=== PATIENT | male | born 2000 | race Two or more races ===

== ENCOUNTER 2023-06-21 09:54 | Outpatient (AMB) | payer BC, SELFPAY ==
--- NOTE | 2023-06-21 09:56 | A.OFFPC_ITS ---
Vital Signs 06/21/23 09:58 Height 5 ft 6 in Weight 168 lb 8 oz BMI 27.2 BP 116/62 Blood Pressure Location Lt brachial Position Sitting Pulse 65 Pulse Source Pulse Oximeter Pulse Oximetry (%) 98 Oxygen Delivery Method Room Air Intake Visit Reasons: New patient-requesting physical Intake Note: Patient is here as a new patient, he is concerned about bilateral knee pain after playing soccer, and strenuous exercises, he thinks he may have fungus in little toe on the right foot. Allergies No Known Allergies Allergy (Verified 06/21/23 10:01) Tobacco use date assessed: 06/21/23 Dental Screening Dental Screen Date: 06/21/23 Did you have a dental visit in the last 12 months?: Yes Did you have a dental problem in the last 6 months where you did not have access to dental care?: No Was dental information given to patient?: Patient has dentist HPI New patient-requesting physical HPI Details New patient Prior PCP:?[facility] Last office visit/CPE: > 1 yr Acute issue(s): Bilateral knee pain after playing soccer ?Toenail fungus PMHx: Knee injuries SurgHx: None FHx: Denies SocHx: Nonsmoker. EtOH none. No drugs PFSH Family History (Updated 06/21/23 @ 10:16 by Fatoumata Washburn CMA) Maternal Grandmother Glaucoma Sister Glaucoma Social History (Updated 06/21/23 @ 10:17 by Fatoumata Washburn CMA) Household Members: Family Housing: House Alcohol intake: former Patient Tobacco Use Status: Never used Tobacco e-Cigarette/Vaping Use: Never Used Use of substances other than those prescribed or required for medical reasons: No service: No Current occupational status: employed Current occupation: electrical aprentice Cognitive needs: No Hearing needs: No Vision needs: No Questionnaire PHQ-9 Over the last 2 weeks, how often have you been bothered by any of the following problems? 1. Little interest or pleasure in doing things: not at all 2. Feeling down, depressed, or hopeless: not at all 3. Trouble falling or staying asleep, or sleeping too much: not at all 4. Feeling tired or having little energy: not at all 5. Poor appetite or overeating: not at all 6. Feeling bad about yourself - or that you are a failure or have let yourself or your family down: not at all 7. Trouble concentrating on things, such as reading the newspaper or watching television: not at all 8. Moving or speaking so slowly that other people could have noticed. Or the opposite - being so fidgety or restless that you have been moving around a lot more than usual: not at all 9. Thoughts that you would be better off or of hurting yourself in some way: not at all Total score: 0 Source: Developed by Drs. Az Chand, Alicia Espinoza, Kenney Sanchez and colleagues, with an educational jaime from [employer]. Thrive Questionnaire I am a: Patient What is your living situation today?: I have a steady place to live Within the past 12 months, did the food you bought not last and you didn't have the money to get more?: Never true Within the past 12 months, did you worry whether your food would run out before you got money to buy more?: Never true Do you have trouble paying for medicines?: No Do you have trouble getting transportation to medical appointments?: No Do you have trouble paying your heating and electricity bill?: No Do you have trouble taking care of your child, family member or friend?: No Do you have trouble with day-to-day activities such as bathing, preparing meals, shopping, managing finances, etc.?: No Are you currently unemployed and looking for a job?: No Are you interested in more education?: Yes AUDIT C Alcohol Use Questionnaire (AUDIT-C) 1. How often do you have a drink containing alcohol?: Never 3. How often do you have six or more drinks on one occasion?: Never Total Score: 0 ALBERTO-7 AMB Questionnaire ALBERTO-7 Date ALBERTO - 7 assessed: 06/21/23 Feeling nervous, anxious, or on edge: 0 = Not at all Not being able to stop or control worryin = Not at all Worrying too much about different things: 0 = Not at all Trouble relaxin = Not at all Being so restless that it is hard to sit still: 0 = Not at all Becoming easily annoyed or irritable: 0 = Not at all Feeling afraid as if something awful might happen: 0 = Not at all Total ALBERTO-7 score (0-4 normal; 5-9 mild; 10-14 moderate; 15-21 severe): 0 Source: Developed by Drs. Az Chand, Alicia Espinoza, Kenney Sanchez and colleagues, with an educational jaime from [employer]. Review of Systems Const Denies chills, Denies fatigue, Denies fever(s), Denies headache(s) and Denies weakness ENT Denies dizziness and Denies headache(s) Card Denies chest pain, Denies lightheadedness, Denies dyspnea and Denies other (Palpitations) Resp Denies cough, Denies dyspnea, Denies wheezing and Denies other ( shortness of breath) Musc Details: b/L knee pain Denies numbness and Denies tingling Neuro Denies dizziness, Denies headache(s), Denies numbness, Denies tingling, Denies paresthesias and Denies weakness Psych Denies anxiety and Denies depression Endo Denies fatigue Aller/Immun Denies wheezing Physical exam (Primary Care) Vital Signs: Last Vital Signs Pulse 65 06/21/23 09:58 BP 116/62 06/21/23 09:58 Pulse Ox 98 06/21/23 09:58 Oxygen Delivery Method Room Air 06/21/23 09:58 BMI result Body Mass Index 27.2 Tobacco/Smoking Status: Tobacco use Status Tobacco use date assessed 06/21/23 06/21/23 10:03 Patient Tobacco Use Status Never used Tobacco 06/21/23 10:17 e-Cigarette/Vaping Use Never Used 06/21/23 10:17 PHQ-9: PHQ-9 Score PHQ-9: Total score 0 06/21/23 10:45 Const General: no acute distress and well developed Nutritional Appearance: well nourished Orientation/consciousness: patient oriented x3 HENMT Head: Yes normocephalic and Yes atraumatic Eyes General: appearance normal, both eyes and all related structures Pupils: Equal, round and reactive pupils present EOM: EOMs intact bilaterally Resp Effort & Inspection: normal respiratory effort Auscultation: clear to auscultation bilaterally Cardio Rate: regular rate Rhythm: regular rhythm Heart sounds: S1 normal heart sound present, S2 normal heart sound present, no gallops, no murmurs and no rubs Neuro General: patient oriented x3 and gait normal Cranial nerves: Yes Equal, round and reactive pupils present Psych Affect: normal affect Assessment and Plan Assessment & Plan (1) Bilateral knee pain: Code(s): M25.561 - Pain in right knee; M25.562 - Pain in left knee Plan: Primarily patellofemoral syndrome though he has had some ligamentous injury in the past. He can use ibuprofen, ice/heat and I will refer him for physical therapy (2) Ingrown toenail: Code(s): L60.0 - Ingrowing nail Plan: Mild ingrown nail Advised he not cut back his nail so short (3) Fungal toenail infection: Code(s): B35.1 - Tinea unguium Plan: Avoid excess moisture Change socks twice a day Can used her benefit in cream (4) Laboratory exam ordered as part of routine general medical examination: Code(s): Z00.00 - Encounter for general adult medical examination without abnormal findings Plan: Check labs Orders: Orders PT Evaluation and Treatment Today M25.561 - Pain in right knee, M25.562 - Pain in left knee Medications: New terbinafine HCl 1% (Antifungal (terbinafine)) 1 appl topical BID 30 days 30 grams 3RF ibuprofen 600 mg PO TID 30 days 90 tabs 1RF Coding Level of Care Code New Pt Level 4 (94414) Diagnoses Bilateral knee pain M25.561; M25.562 Ingrown toenail L60.0 Fungal toenail infection B35.1 Laboratory exam ordered as part of routine general medical examination Z00.00
[2023-06-21 09:58] VITALS: BP 116/62; PULSE 65; O2SAT 98; BMI 27.2
== END 2023-06-21 11:08 | disposition home or self-care (01) ==
PROVIDERS: PCP Family Medicine; Visit Provider Family Medicine
DX: M25.561 Pain in right knee (principal); M25.562 Pain in left knee; L60.0 Ingrowing nail; B35.1 Tinea unguium; Z00.00 Encounter for general adult medical examination without abnormal findings
CPT/HCPCS: 99204

== ENCOUNTER 2023-06-22 09:40 | Outpatient (REF) | payer BC, SELFPAY ==
[2023-06-22 12:30] LABS: Alanine Aminotransferase 42 U/L (0-40); Albumin Level 4.4 g/dL (3.5-5.0); Alkaline Phosphatase 77 U/L (39-117); Anion Gap 9 (12-20); Aspartate Amino Transferase 32 U/L (5-37); Blood Urea Nitrogen 14 mg/dL (9-16); Calcium 9.4 mg/dL (8.4-10.2); Carbon Dioxide 29 mmol/L (22-29); Chloride 106 mmol/L (96-108); Cholesterol 179 mg/dL (<200); Estimated Glomerular Filt Rate > 60; Glucose Fasting 89 mg/dL (60-99); HDL Cholesterol 60 mg/dL (>40); LDL Cholesterol Calculated 104 mg/dL (<100); Potassium 3.9 mmol/L (3.3-5.1); Sodium 140 mmol/L (135-145); Total Protein 7.2 g/dL (6.5-8.0); Triglycerides 79 mg/dL (<150)
[2023-06-22 12:31] LABS: TSH reflex Free T4 2.09 uIU/mL (0.32-4.0)
[2023-06-22 17:40] LABS: Appearance Urine Clear; Color Urine Yellow; Glucose Urine UA Negative (Negative); Leukocyte Esterase Urine Negative (Negative); Nitrite Urine Negative (Negative); PH 5.5 (5.0-9.0); Specific Gravity - Urine 1.015 (1.005-1.025); Urine Blood Negative (Negative); Urine Ketones Negative (Negative); Urine Protein Negative (Neg-Trace)
[2023-06-22 18:12] LABS: Creatinine Urine 92.33 mg/dL; Microalbumin Urine < 5.0 mg/L
== END 2023-06-22 09:41 | disposition home or self-care (01) ==
LOC: HO.WFDLDS 09:40
PROVIDERS: Visit Provider Family Medicine
DX: Z00.00 Encounter for general adult medical examination without abnormal findings (principal); I10 Essential (primary) hypertension
CPT/HCPCS: 36415; 80053; 80061; 81003; 82570; 84443

== ENCOUNTER 2023-08-31 08:00 | Outpatient (RCR) | payer BC, SELFPAY ==
--- NOTE | 2023-06-27 13:25 | MHC.PT.EP ---
[facility] [place] Office [place] Office [place] Office [address] Ivan Chapa [address] [phone] F: [phone] F: [phone] F: [phone] F: [phone] Physical Therapy Plan of Care Date of Evaluation: 06/27/23 Date of Surgery: NA Diagnosis: B KNEE PAIN Assessment: Pt IS 23 YO M REFERRED TO PT FROM DR BOWMAN WITH B KNEE PAIN (Pt REPORTS L>R). REPORTS SOME GENERAL INJURIES WRESTLING AND PLAYING SOCCER IN HS. NEVER HAD PT. PRESENTS WITH GOOD KNEE ROM AND STRENGTH PER MMT. SOME HS TIGHTNESS, SOME DECREASED ENDURANCE IN LE MMS, PES PLANUS/GENU VARUS AND PATELLA ALIGNMENT ISSUES. SHOULD BENEFIT FROM PT TO ADDRESS THESE ISSUES Frequency and Duration: The patient will be seen 2X/WK X 4 WKS Short Term Goals: 1. INCREASED AWARENESS KNEE CARE 2. I TAPING WITH RELIEF IF INDICATED 3. Pt TO WEAR OTC ARCH SUPPORTS IF RELIEF WITH KT FOR ARCH SUPPORT [facility] Goals: 1. I HEP WITH DC EX PLAN 2. DECREASED KNEE PAIN AT LEAST 50% WITH ADLS 3. IMPROVED LEFI (65/80 AT SOC) Treatment Plan: Modalities to reduce pain, spasms and effusion. Manual therapy to restore motion and function. Therapeutic exercise to improve strength and flexibility. Neuromuscular re-education for posture and balance. Therapeutic activities to return to functional activities of daily living. Electronically signed by: MULU CISNEROS PT Please sign and return to therapist. Thank you for your referral.
--- NOTE | 2023-10-03 15:14 | MHC.PT.DC ---
[facility] [place] Office [place] Office [place] Office [address] Ivan Chapa [address] [phone] F: [phone] F: [phone] F: [phone] F: [phone] Physical Therapy Discharge Report Diagnosis: B KNEE PAIN Date of Surgery: NA Date of Evaluation: 06/27/23 Date of Discharge: 10/03/23 Treatments to Date: 11 Cancellations to Date: No Shows to Date: Discharge Status: Achieved Goals Independent with HEP Discharge Summary: PER ASSESSMENT BY STEPHEN SAL, PT, DPT ON 08/31/23: Pt I with HEP and has met a goals for therapy. D/C pt to I HEP. Electronically signed by: MULU CISNEROS PT Please sign and return to therapist. Thank you for your referral.
== END 2023-10-03 15:14 | disposition home or self-care (01) ==
LOC: HO.PTWFD 08:00
PROVIDERS: PCP Family Medicine; Visit Provider Family Medicine
DX: M25.561 Pain in right knee (principal); M25.562 Pain in left knee
CPT/HCPCS: 97110; 97140; 97161; 97530; 97535

== ENCOUNTER 2025-07-03 09:59 | Outpatient (AMB) | payer BC, SELFPAY ==
[2025-07-03 10:02] VITALS: BP 110/68; PULSE 59; O2SAT 98; BMI 26.8
--- NOTE | 2025-07-03 10:02 | MHC.PC.OV ---
Vital Signs 07/03/25 10:02 Height 5 ft 6 in Weight 166 lb BMI 26.8 BP 110/68 Blood Pressure Location Rt brachial Position Sitting Pulse 59 Pulse Source Pulse Oximeter Pulse Oximetry (%) 98 Oxygen Delivery Method Room Air Intake Visit Reasons: PE exam Allergies No Known Allergies Allergy (Verified 07/03/25 10:04) Medication List - Last Reconciled 07/03/25 by Jay Degroot MD No Known Home Meds Tobacco use date assessed: 07/03/25 Dental Screening Dental Screen Date: 07/03/25 Did you have a dental visit in the last 12 months?: Yes Did you have a dental problem in the last 6 months where you did not have access to dental care?: No Was dental information given to patient?: Patient has dentist HPI PE exam HPI Details 25 /o male presents for a CPE with f/u labs. No recent abs to review. PFSH Family History Maternal Grandmother Glaucoma Sister Glaucoma Social History Household Members: Family Housing: House Alcohol intake: former Patient Tobacco Use Status: Never used Tobacco e-Cigarette/Vaping Use: Never Used service: No Current occupational status: employed Current occupation: electrical aprentice Cognitive needs: No Hearing needs: No Vision needs: No Questionnaire PHQ-9 Over the last 2 weeks, how often have you been bothered by any of the following problems? 1. Little interest or pleasure in doing things: not at all 2. Feeling down, depressed, or hopeless: not at all 3. Trouble falling or staying asleep, or sleeping too much: not at all 4. Feeling tired or having little energy: not at all 5. Poor appetite or overeating: not at all 6. Feeling bad about yourself - or that you are a failure or have let yourself or your family down: not at all 7. Trouble concentrating on things, such as reading the newspaper or watching television: not at all 8. Moving or speaking so slowly that other people could have noticed. Or the opposite - being so fidgety or restless that you have been moving around a lot more than usual: not at all 9. Thoughts that you would be better off or of hurting yourself in some way: not at all Total score: 0 Depression Screening Interpretation: Negative Depression Screening Done: Yes 96966 - PHQ-9 Billing: Yes Source: Developed by Drs. Az Chand, Alicia Espinoza, Kenney Sanchez and colleagues, with an educational jaime from [employer]. Thrive Questionnaire Date Thrive assessed: 07/03/25 I am a: Patient What is your living situation today?: I have a steady place to live Within the past 12 months, did the food you bought not last and you didn't have the money to get more?: I choose not to answer this question Within the past 12 months, did you worry whether your food would run out before you got money to buy more?: I choose not to answer this question Do you have trouble paying for medicines?: I choose not to answer this question Do you have trouble getting transportation to medical appointments?: I choose not to answer this question Do you have trouble paying your heating and electricity bill?: I choose not to answer this question Do you have trouble taking care of your child, family member or friend?: I choose not to answer this question Do you have trouble with day-to-day activities such as bathing, preparing meals, shopping, managing finances, etc.?: I choose not to answer this question Are you currently unemployed and looking for a job?: I choose not to answer this question Are you interested in more education?: Yes Please select the resources that you would like help with: None Currently or been in a relationship where the following occur: I choose not to answer THRIVE Score: 0 AUDIT C Alcohol Use Questionnaire (AUDIT-C) 1. How often do you have a drink containing alcohol?: Never 3. How often do you have six or more drinks on one occasion?: Never Total Score: 0 ALBERTO-7 AMB Questionnaire ALBERTO-7 Date ALBERTO - 7 assessed: 07/03/25 Feeling nervous, anxious, or on edge: 0 = Not at all Not being able to stop or control worryin = Not at all Worrying too much about different things: 0 = Not at all Trouble relaxin = Not at all Being so restless that it is hard to sit still: 0 = Not at all Becoming easily annoyed or irritable: 0 = Not at all Feeling afraid as if something awful might happen: 0 = Not at all Total ALBERTO-7 score (0-4 normal; 5-9 mild; 10-14 moderate; 15-21 severe): 0 Source: Developed by Drs. Az Chand, Alicia Espinoza, Kenney Sanchez and colleagues, with an educational jaime from [employer]. ALBERTO-7 Assessment Billing ALBERTO-7 Assessment Tool: ALBERTO-7 Assessment 74601 Review of Systems Const Denies chills, Denies fatigue, Denies fever(s), Denies headache(s) and Denies weakness Eyes Denies change in vision ENT Denies dizziness, Denies headache(s), Denies hearing loss, Denies nasal congestion, Denies sinus pain, Denies sinus pressure and Denies sore throat Card Denies chest pain, Denies lightheadedness, Denies dyspnea and Denies other (palpitations) Resp Denies cough, Denies dyspnea and Denies wheezing GI Denies abdominal pain, Denies melena, Denies hematochezia, Denies change in bowel habits, Denies dyspepsia and Denies nausea Denies hematuria and Denies dysuria Musc Denies abnormal gait, Denies myalgias, Denies arthralgias, Denies numbness and Denies tingling Skin/Breast Denies rash, Denies unusual bruising and Denies wounds Neuro Denies abnormal gait, Denies dizziness, Denies headache(s), Denies memory loss, Denies numbness, Denies Sensory deficit (Neuro), Denies tingling and Denies weakness Psych Denies anxiety, Denies depression and Denies memory loss Endo Denies cold intolerance, Denies fatigue, Denies heat intolerance, Denies polydipsia and Denies polyuria Melvin/Lymph Denies easy bleeding and Denies easy bruising Aller/Immun Denies wheezing Physical exam (Primary Care) Vital Signs: Last Vital Signs Pulse 59 07/03/25 10:02 BP 110/68 07/03/25 10:02 Pulse Ox 98 07/03/25 10:02 Oxygen Delivery Method Room Air 07/03/25 10:02 BMI result Body Mass Index 26.8 Tobacco/Smoking Status: Tobacco use Status Tobacco use date assessed 07/03/25 07/03/25 10:06 Patient Tobacco Use Status Never used Tobacco 07/03/25 10:06 e-Cigarette/Vaping Use Never Used 07/03/25 10:06 PHQ-9: PHQ-9 Score PHQ-9: Total score 0 07/03/25 10:06 Depression Screening Interpretation: Negative Thrive Assessment: Date of Thrive Assessment Date Thrive assessed 07/03/25 07/03/25 10:06 Currently or been in a relationship where the following occur: I choose not to answer Const General: no acute distress, well developed, alert and awake Nutritional Appearance: well nourished Orientation/consciousness: patient oriented x3 HENMT Head: Yes normocephalic and Yes atraumatic Ears: hearing grossly normal bilaterally and TM's normal bilaterally General nose exam: Normal external nose present and Normal nares present Mouth: Normal oral and palatal mucosa present and moist mucous membranes Teeth and gingiva: dentition normal Throat: Yes posterior oropharynx normal Eyes General: appearance normal, both eyes and all related structures Pupils: Equal, round and reactive pupils present and Pupil accommodation reflex normal EOM: EOMs intact bilaterally Neck Neck: Yes normal visual inspection, Yes no lymphadenopathy and Yes trachea midline Thyroid: Thyroid normal Carotids: no bruits Lymphatic: no lymphadenopathy noted Chest Chest palpation & inspection: normal inspection of the chest Resp Effort & Inspection: normal respiratory effort Auscultation: clear to auscultation bilaterally Cardio Rate: regular rate Rhythm: regular rhythm Heart sounds: S1 normal heart sound present, S2 normal heart sound present, no gallops, no murmurs and no rubs Bruits: no abdominal aortic bruits and no carotid bruits GI Palpation (GI): No Abdominal aortic bruit present, Soft to palpation, nontender, No hepatosplenomegaly present and No Rebound tenderness present Auscultation: normal bowel sounds General: Yes no CVA tenderness Back/Spine/Pelvis Back: no CVA tenderness Cervical Spine: cervical ROM normal and No Cervical spine tenderness Thoracic/Lumbar Spine: thoraco-lumbar ROM normal, No pain with thoraco-lumbar ROM, No thoracic spinal tenderness and No lumbar spinal tenderness Skin Lesions: no lesions Rashes: no rashes Trauma: no lacerations or abrasions Wounds: no wounds Nails: normal Neuro General: patient oriented x3 Cranial nerves: Yes Equal, round and reactive pupils present Cognition (Neuro): normal cognition Gait exam (Neuro): Normal gait present Motor exam (neuro): 5/5 motor strength present throughout Sensory Exam: No Sensory deficit (Neuro) Deep tendon reflexes (DTR's): Right patellar reflex intensity grade: 2+ and Left patellar reflex intensity grade: 2+ Extrem General: Yes normal to inspection and No edema Psych Appearance: grossly normal Affect: normal affect Attitude: cooperative Thought process: Normal thought process present Coding Level of Care Code Est Pt Level 3 (36488) Est Pt Prev Care 18-39y(98446) Diagnoses Adult general medical exam Z00.00 Additional Codes ALBERTO-7 Assessment Billing - ALBERTO-7 Assessment Tool: ALBERTO-7 Assessment 97725 ([id number]) PHQ-9 - 54164 - PHQ-9 Billing: Yes ([id number]) Assessment & Plan Assessment & Plan (1) Adult general medical exam: Code(s): Z00.00 - Encounter for general adult medical examination without abnormal findings Category: Medical Plan: 25-year-old male presents for complete physical exam Exam all within normal limits Encouraged healthy diet with active lifestyle and plenty of exercise Orders: Orders Complete Blood Count Auto Diff Today Z00.00 - Encounter for general adult medical examination without abnormal findings Microalbumin, Random (w Creat) Today I10 - Essential (primary) hypertension UA CC w/rflx Micro + Cult Today Z00.00 - Encounter for general adult medical examination without abnormal findings TSH reflex Free T4 Today Z00.00 - Encounter for general adult medical examination without abnormal findings Comprehensive Eighty Four. Panel Fast Today Z00.00 - Encounter for general adult medical examination without abnormal findings Lipid Panel Today Z00.00 - Encounter for general adult medical examination without abnormal findings
--- OUTSIDE RECORDS SUMMARY | 2025-07-03 10:34 | XMS_ITS | Clinical Summary ---
Author Organization [facility] Address [address] [place] [phone] Phone Care Team Providers Care Entry Level Software Developer Name Role Phone Tanisha Navas MD Primary Care Provider Unav ailable Allergies No known active allergies Medications No known medications Active Problems No known active problems Immunizations Immunization Administration Dates Next Due DTaP 01/13/2003, 1,2001,04/02 HPV Vaccine 9 Valent 06/09/2016,02/08/2016,09/24 Hep A, ped/adol 05/19/2011,12/15/2009 Hep B, ped/adol 06/10/2010,12/15/2009,10/26/2009 IPV 03/26/2006, 3,2001,06/04 Influenza, injectable, quadr ivalent, preservative free 09/24/2015,09/03/2013,12/15/2009 MMR 06/10/2010,10/26/2009 Measles 03/19/2002 Meningococcal Conj (Menactra) MCV4P 03/27/2017,0 05/09/2012 Td (adult) (Tenivac), 5 Lf t etanus toxoid, PF, adsorbed 10/26/2009 Tdap 05/09/2012 Varicella 12/15/2009,10/26/2009 Family History Medical History Relation Name Comments No Known Problems Father No Known Problems Maternal Grandfather No Known Problems Maternal Grandmother No Known Problems Mother HIV Paternal Grandfather No Known Problems Paternal Grandmother Relation Name Status Comments Father Alive age: 37 Maternal Grandfather Alive Maternal Grandmother Alive Mother Alive age: 33 Paternal Grandfather Alive HIV Paternal Grandmother Alive Sister 1 Jaqueline Alive Sister 2 Selene Alive Social History Tobacco Use Types Packs/Day Years Used Date Smoking Tobacco: Never Assessed Sex and Gender Information Value Date Recorded Sex Assigned at Not on file Legal Sex Male 1:46 PM EDT Gender Identity Not on file Sexual Orientation Straight 03/18/2020 12 :46 PM EDT Last Filed Vital Signs Vital Sign Reading Time Taken Comments Blood Pressure 116/68 03/18/2020 11:17 AM EDT Pulse - - Temperature - - Respiratory Rate - - Oxygen Saturation - - Inhaled Oxygen Concentration - - Weight 67 kg (147 lb 9.6 oz) 03/18/2020 11:17 AM EDT Height 166.4 cm (5' 5.5 ) 03/18/2020 11:17 AM ED T Body Mass Index 24.19 03/18/2020 11:17 AM EDT Plan of Treatment Health Maintenance Due Date Last Done Comments DTaP,Tdap,and Td Vaccines (7 - Td or Tdap) 05/09/2022 05/09/2012, 10/26/2009, 01/13/2003, Additional history exists Influenza Vaccines (#1) 2025 09/24/20, 09/03/2013, 12/15/2009 COVID-19 Vaccine ( season) 2025 IPV Vaccines Completed 03/26/2006, 04/0 10/2002, 2001, Additional history exists Varicella Vaccines Completed 12/15/2009, 10/26/2009 Hepatitis B Vaccines Completed 06/10/2010, 12/15/2009, 10/26/2009 MMR Vaccines Completed 06/10/2010, 10/26/2009 Hepatitis A Vaccines Completed 05/19/2011, 12/16/19 10 HPV Vaccines Completed 06/09/2016, 01/14, 09/24/2015 Meningococcal Vaccine Completed 03/27/2017, 012 HIB Vaccines Aged Out No longer eligi ble based on patient's age to complete this topic Men B Vaccine Aged Out No longer elig ible based on patient's age to complete this topic Pneumococcal Vaccine Aged Out No long er eligible based on patient's age to complete this topic Insurance [facility] Care Teams Entry Level Software Developer Relationship Specialty Start Date End Date Tanisha Navas MD PCP - General 03/10/18
--- OUTSIDE RECORDS SUMMARY | 2025-07-03 10:34 | XMS_ITS | Encounter Summary ---
Author Organization [facility] Address [address] [place] [id number] Phone Care Team Providers Care Receiving Checker Name Role Phone Tanisha Navas MD Primary Care Provider Unav ailable Encounter Details Date Type Department Care Team (Late st Contact Info) Description 03/03/2018 Conversion Encounter [facility] [address] [address] Tanisha Navas MD Social History Tobacco Use Types Packs/Day Years Used Date Smoking Tobacco: Never Assessed Sex and Gender Information Value Date Recorded Sex Assigned at Not on file Legal Sex Male 1:46 PM EDT Gender Identity Not on file Sexual Orientation Straight 03/18/2020 12 :46 PM EDT documented as of this encounter Plan of Treatment Not on file documented as of this encounter Visit Diagnoses Not on filedocumented in this encounter Care Teams Receiving Checker Relationship Specialty Start Date End Date Tanisha Navas MD PCP - General 03/10/18 documented as of this encounter
== END 2025-07-03 10:38 | disposition home or self-care (01) ==
LOC: HO.HMCFM 10:01
PROVIDERS: PCP Family Medicine; Visit Provider Family Medicine
DX: Z00.00 Encounter for general adult medical examination without abnormal findings (principal)

== ENCOUNTER → 2025-07-03 09:59 | Outpatient (BNVA) | payer BC, SELFPAY | PROVIDERS: PCP Family Medicine; Visit Provider Family Medicine | DX: Z00.00 Encounter for general adult medical examination without abnormal findings (principal); I10 Essential (primary) hypertension | CPT/HCPCS: 96127 ==

== ENCOUNTER 2025-07-08 10:44 | Outpatient (REF) | payer BC, SELFPAY ==
--- OUTSIDE RECORDS SUMMARY | 2025-07-08 13:29 | XMS_ITS | Encounter Summary ---
Author Organization [facility] Address [address] [place] [phone] Phone Care Team Providers Care Validation Software Facilitator Name Role Phone Tanisha Navas MD Primary Care Provider Unav ailable Encounter Details Date Type Department Care Team (Late st Contact Info) Description 03/03/2018 Conversion Encounter [facility] [address] [address] Tanisha Navas MD Social History Tobacco Use [...] on filedocumented in this encounter Care Teams Validation Software Facilitator Relationship Specialty Start Date End Date Tanisha Navas MD PCP - General 03/10/18 documented as of this encounter
--- OUTSIDE RECORDS SUMMARY | 2025-07-08 13:29 | XMS_ITS | Clinical Summary ---
Author Organization [facility] Address [address] [place] [phone] Phone Care Team Providers Care Pool Attendant Name Role Phone Tanisha Navas MD Primary [...] patient's age to complete this topic Insurance [facility] Care Teams Pool Attendant Relationship Specialty Start Date End Date Tanisha Navas MD PCP - General 03/10/18
[2025-07-08 14:35] LABS: MANUAL DIFF FLAG NO
[2025-07-08 14:41] LABS: Hematocrit 45.7 % (42.0-52.0); Hemoglobin 15.1 g/dl (14.0-18.0); Imm Gran Abs Auto 0.02 X10*3/uL (0.00-0.03); Imm Gran Pct Auto 0.5 % (0.0-0.4); Lymphocytes Absolute Auto 1.5 X10*3/uL (1.2-4.9); Mean Corpuscular HGB Conc 33.0 g/dl (31.0-36.0); Mean Corpuscular Hemoglobin 29.2 pg (27.0-33.0); Mean Corpuscular Volume 88.2 fL (80.0-98.0); NRBC Abs Auto 0.000 X10*3/uL (0.0-0.012); NRBC Pct Auto 0.0 /100WBC (0.0-0.2); Platelet Count 250 X10*3/uL (160-400); Red Blood Count 5.18 X10*6/uL (4.60-5.80); White Blood Count 4.4 X10*3/uL (4.8-10.8)
[2025-07-08 14:44] LABS: Appearance Urine Clear; Glucose Urine UA Negative (Negative); PH 7.5 (5.0-9.0); Specific Gravity - Urine 1.020 (1.005-1.025)
[2025-07-08 15:14] LABS: Alanine Aminotransferase 42 U/L (0-40); Albumin Level 4.8 g/dL (3.5-5.0); Alkaline Phosphatase 73 U/L (39-117); Anion Gap 10 (12-20); Aspartate Amino Transferase 33 U/L (5-37); Blood Urea Nitrogen 13 mg/dL (9-16); Calcium 9.3 mg/dL (8.4-10.2); Carbon Dioxide 30 mmol/L (22-29); Chloride 105 mmol/L (96-108); Cholesterol 192 mg/dL (<200); Estimated Glomerular Filt Rate > 60; HDL Cholesterol 63 mg/dL (>40); Potassium 4.1 mmol/L (3.3-5.1); Sodium 141 mmol/L (135-145); Total Protein 7.6 g/dL (6.5-8.0); Triglycerides 85 mg/dL (<150)
== END 2025-07-08 10:45 | disposition home or self-care (01) ==
LOC: HO.WFDLDS 10:44
PROVIDERS: Visit Provider Family Medicine
DX: Z00.00 Encounter for general adult medical examination without abnormal findings (principal); I10 Essential (primary) hypertension
CPT/HCPCS: 36415; 80053; 80061; 81003; 82043; 82570; 84443; 85025